=== PATIENT | female | born 1960 | race Caucasian/White ===

== ENCOUNTER → 2017-05-31 | Outpatient (CLI) | payer SELFPAY ==
--- NOTE | 2017-05-31 14:15 | CT ---
HISTORY: Family history of cardiac disease and chest pain x2 months. Cardiac CTA with calcium scoring Technique: Multiple axial images of the chest were obtained on a [address] from the aortic arch to the base of the heart with retrospective cardiac gating. Noncontrast evaluation of th e heart was performed for calcium scoring with prospective gating. 3D reconstructions and vessel anal ysis were performed on a vital imaging workstation. Dose reduction techniques including Automated Ex posure Control (AEC) and adjustment of mA and kV were utilized. Findings: A total calcium score of 41 is observed. The score results in a minimal likelihood of coronary event s given the age and sex matched cohort analysis. Mild coronary artery disease of the left anterior descending coronary artery. Evaluation of the coron angie arterial system demonstrates no significant disease of the left main or left circumflex. In aura tion, in no significant disease of the right coronary artery can be identified. Extracardiac findings: No pathologically enlarged lymphadenopathy can be observed. The aortic arch is unremarkable in its a ppearance with normal vascular configuration. No significant pericardial effusion can be identified. The visualized portions of the lung parenchyma are unremarkable. No lytic or blastic lesions can b e identified within the visualized bony thorax. 2.7 cm left liver lobe cyst. Otherwise, the visualiz ed portions of the abdomen demonstrate normal perfusion patterns of the spleen and liver. IMPRESSION: Total calcium score of 41 that results in a minimal likelihood of coronary artery events. Reported By:
== END ==
LOC: RAD 10:58
PROVIDERS: ATTEND Physician Assistant Medical
DX: Z13.6 Encounter for screening for cardiovascular disorders (principal)